=== PATIENT | male | born 1990 | race Caucasian/White ===

== ENCOUNTER 2020-08-15 13:15 | Emergency (ER) | payer SELFPAY ==
[2020-08-15] MEDS ORDERED: Lidocaine 1% w/Epinephrine 1:100K 20 ML VIAL ONE (13:33)
--- NOTE | 2020-08-15 14:23 | RAD ---
XR Hand Lt 3 View STANDARD History: Deep laceration on lateral hand Comparison: None. Findings: Soft tissue laceration medial aspect of the hand with possible nondisplaced fracture proxim al metacarpal diaphysis small finger. No radiopaque foreign object is appreciated. Ovoid calcification along the radial collateral ligament proximal interphalangeal joint small finger. Impression: Deep laceration medial aspect of the hand without radiopaque foreign object. Possible non displaced fracture small finger metacarpal diaphysis near the laceration.
[2020-08-15] MEDS ORDERED: Bacitracin 1 PK ONE (14:55)
[2020-08-15] MEDS ORDERED: Boostrix 0.5 ML (Tdap) VIAL ONE (14:55)
== END 2020-08-15 15:20 | disposition home or self-care (01) ==
LOC: MADERS 13:15 → EEVIPCON 13:15 → MADERS 15:20
DX: S61.412A Laceration without foreign body of left hand, initial encounter (principal); F17.220 Nicotine dependence, chewing tobacco, uncomplicated; W26.0XXA Contact with knife, initial encounter
CPT/HCPCS: 12032; 90471; 90715